=== PATIENT | male | born 1995 | race Caucasian/White ===

== ENCOUNTER 2018-03-28 23:25 | Emergency (ER) | payer SELFPAY ==
[~2018-03-28] VITALS: Ht 162.6 cm; Wt 80.3 kg
[2018-03-28 23:46] VITALS: BP 130/84; Ht 162.6 cm; Wt 80.3 kg
== END 2018-03-29 00:39 | disposition home or self-care (01) ==
LOC: ED 23:25
DX: L91.8 Other hypertrophic disorders of the skin (principal); H02.89 Other specified disorders of eyelid